=== PATIENT | male | born 1950 | race Two or more races ===

== ENCOUNTER 2017-11-17 07:43 | Day surgery (SDC) | payer OTHER ==
[~2017-11-17 07:43] MED LIST: ASA81 MG PO
[2017-11-17] MEDS ORDERED: PERCOCET 5-3251 EACH PO (14:21)
== END 2017-11-17 17:32 | disposition home or self-care (01) ==
LOC: CIR.AMB 07:43
DX: C73 Malignant neoplasm of thyroid gland (principal)

== ENCOUNTER 2018-03-16 12:00 | Day surgery (SDC) | payer OTHER ==
[~2018-03-16] VITALS: Ht 172.7 cm; Wt 78.9 kg
[~2018-03-16 12:00] MED LIST changes: +PERCOCET 5-3251 EACH PO; +SYNTHROID50 MCG PO
[2018-03-16] MEDS ORDERED: PERCOCET 5-3251 EACH PO (12:55)
== END 2018-03-16 16:10 | disposition home or self-care (01) ==
LOC: CIR.AMB 12:00 → SURG 12:00 → CIR.AMB 16:10
DX: D34 Benign neoplasm of thyroid gland (principal)

== ENCOUNTER 2024-07-31 13:16 | Inpatient (IN) | payer OTHER ==
[~2024-07-31] VITALS: Ht 172.7 cm; Wt 169.6 kg
[2024-07-31] MEDS ORDERED: ROSUVASTATIN CA10 MG (13:21)
[2024-07-31] MEDS ORDERED: METOPROLOL SUCC25 MG (13:21)
[2024-07-31] MEDS ORDERED: COZAAR50 MG (13:22)
[2024-07-31] MEDS ORDERED: CEFTRIAXONE SODIUM 2,000 MG VIAL IV ONE (15:30)
[2024-07-31] MEDS ORDERED: 0.9 % SODIUM CHLORIDE 500 ML IV ONE (15:30)
[2024-07-31] MEDS ORDERED: TRAMADOL HCL 50 MG TABLET PO STA (15:39)
[2024-07-31] MEDS ORDERED: TAMSULOSIN HCL 0.4 MG CAP PO ONE (15:45)
[2024-07-31 16:19] LABS: PH,URINE 6.5 (5.0-8.0); URINE APPEARANCE Cloudy; URINE BILIRRUBIN Negative (NEGATIVE); URINE BLOOD Small; URINE COLOR Yellow; URINE GLUCOSE Negative (NEGATIVE); URINE KETONE Trace (NEGATIVE); URINE LEUKOCYTE Large; URINE NITRATE Negative; URINE PROTEIN 30 (NEGATIVE)
[2024-07-31 16:23] LABS: URINE RBC 87.7 uL (0.0-20.8); URINE WBC 3095.3 uL (0.0-23.2)
[2024-07-31 16:29] LABS: URINE EPITHELIAL CELLS 0.9 uL (0.0-38.8)
[2024-07-31 16:30] LABS: URINE BACTERIA > 9821.5 uL (0.0-1933)
[2024-07-31 16:58] LABS: HEMATOCRIT 36.8 % (39.0-48.0); HEMOGLOBIN 12.5 g/dL (13-16.00); MEAN CORPUSCULAR HEMOGLOBIN 26.9 pg (27.00-32.0); PLATELET COUNT 288 K/uL (150-450); RED BLOOD COUNT 4.66 M/uL (4.00-6.00)
[2024-07-31 17:21] LABS: ALBUMIN 3.8 gm/dL (3.4-5.0); BILIRUBIN TOTAL 0.52 mg/dL (0.3-1.2); CALCIUM 10.4 mg/dL (8.5-10.1); CREATININE SERUM 0.98 mg/dL (0.70-1.30); GFR 75.18; GLOBULINA 5.1 G/DL (2.4-3.5); POTASSIUM 3.98 mEq/L (3.5-5.1); TOTAL PROTEIN 8.9 gm/dL (6.4-8.2)
[2024-07-31] MEDS ORDERED: MEROPENEM 500 MG/VIAL VIAL IV SCH (21:23)
[2024-07-31] MEDS ORDERED: KETOROLAC TROMETHAMINE 15 MG VIAL IU SCH (21:30)
[2024-07-31] MEDS ORDERED: 0.9 % SODIUM CHLORIDE 1,000 ML IV SCH (21:30)
[2024-07-31] MEDS ORDERED: ACETAMINOPHEN 500 MG GEL..CAP PO PRN (21:30)
[2024-07-31 21:45] VITALS: BP 119/70
[2024-07-31 22:17] LABS: INR 1.1; PARTIAL THROMBOPLASTIN TIME 29.3 SECONDS (22.0-34.0); PROTHROMBIN TIME 11.9 SECONDS (9.0-11.5)
[2024-07-31 23:24] VITALS: BP 116/61; O2SAT 95
[2024-08-01 00:54] VITALS: BP 136/79; O2SAT 95
[2024-08-01 08:05] VITALS: BP 113/61; O2SAT 97
[2024-08-01] MEDS ORDERED: ASPIRIN 81 MG TAB.CHEW PO SCH (09:00)
[2024-08-01] MEDS ORDERED: LACTOBACILLUS ACIDOPHILUS 1 CAP CAP PO SCH (09:00)
[2024-08-01] MEDS ORDERED: FAMOTIDINE/PF 20 MG in 0.9 % SODIUM CHLORIDE 8 ML IV PUSH SCH (09:00)
[2024-08-01] MEDS ORDERED: KETOROLAC TROMETHAMINE 30 MG VIAL IV SCH (13:00)
[2024-08-01 16:23] VITALS: BP 134/79
[2024-08-01] MEDS ORDERED: SIMVASTATIN 20 MG TABLET PO SCH (17:00)
[2024-08-02 01:06] VITALS: BP 136/74; O2SAT 96
[2024-08-02] MEDS ORDERED: LEVOTHYROXINE SODIUM 100 MCG TABLET PO SCH (06:00)
[2024-08-02 08:01] LABS: PH,URINE 7.5 (5.0-8.0); URINE APPEARANCE Clear; URINE BILIRRUBIN Negative (NEGATIVE); URINE BLOOD Negative; URINE COLOR Yellow; URINE GLUCOSE Negative (NEGATIVE); URINE KETONE Negative (NEGATIVE); URINE LEUKOCYTE Small; URINE NITRATE Negative; URINE PROTEIN Negative (NEGATIVE)
[2024-08-02 08:05] LABS: URINE BACTERIA 13.8 uL (0.0-1933); URINE EPITHELIAL CELLS 2.3 uL (0.0-38.8); URINE RBC 15.5 uL (0.0-20.8); URINE WBC 267.4 uL (0.0-23.2)
[2024-08-02 08:11] LABS: HEMATOCRIT 36.6 % (39.0-48.0); HEMOGLOBIN 12.7 g/dL (13-16.00); MEAN CELL VOLUME 77.7 fL (80.0-100.00); MEAN CORPUSCULAR HGB CONC 34.7 g/dl (32.0-36.0); PLATELET COUNT 287 K/uL (150-450); RED BLOOD COUNT 4.71 M/uL (4.00-6.00); RED CELL DISTRIBUTION WIDTH 15.1 % (11.5-14.5)
[2024-08-02 08:53] VITALS: BP 123/76; O2SAT 99
[2024-08-02 09:02] LABS: ALBUMIN 3.5 gm/dL (3.4-5.0); BILIRUBIN TOTAL 0.54 mg/dL (0.3-1.2); CALCIUM 10.2 mg/dL (8.5-10.1); CREATININE SERUM 0.89 mg/dL (0.70-1.30); GFR 84.02; GLOBULINA 4.2 G/DL (2.4-3.5); MAGNESIUM 2.5 mg/dL (1.8-2.4); POTASSIUM 4.38 mEq/L (3.5-5.1); TOTAL PROTEIN 7.7 gm/dL (6.4-8.2)
[2024-08-02 09:05] LABS: C-REACTIVE PROTEIN 7.14 MG/DL (0.00-0.29)
[2024-08-02] MEDS ORDERED: CEFTRIAXONE SODIUM 2,000 MG VIAL IV SCH (17:00)
[2024-08-02 17:47] VITALS: BP 123/61
[2024-08-03 02:41] VITALS: BP 120/73; O2SAT 95
[2024-08-03] MEDS ORDERED: KETOROLAC TROMETHAMINE 30 MG VIAL IV PRN (05:45)
[2024-08-03 08:26] VITALS: BP 135/80
[2024-08-03] MEDS ORDERED: TAMSULOSIN HCL 0.4 MG CAP PO SCH (17:00)
[2024-08-03] MEDS ORDERED: FINASTERIDE 5 MG TABLET PO SCH (17:00)
[2024-08-03] MEDS ORDERED: NAPROXEN 500 MG TABLET PO SCH (21:00)
[2024-08-04 01:28] VITALS: BP 96/57; O2SAT 95
[2024-08-04 08:29] VITALS: BP 113/61
[2024-08-04] MEDS ORDERED: LOSARTAN POTASSIUM 50 MG TABLET PO SCH (09:00)
[2024-08-04] MEDS ORDERED: METOPROLOL SUCCINATE 25 MG TAB.SR.24H PO SCH (09:00)
[2024-08-04 16:07] VITALS: BP 131/74
[2024-08-05 01:28] VITALS: BP 100/60; O2SAT 97
[2024-08-05 08:49] VITALS: BP 116/68; O2SAT 99
== END 2024-08-05 11:04 | disposition home or self-care (01) | DRG 690 ==
LOC: ER 13:17 → MEDJ 22:14 → SEC-K 22:14 → MEDJ 23:22
PROVIDERS: General Practice; Internal Medicine Infectious Disease; Nurse Practitioner Family; ADMIT Internal Medicine; ATTEND Internal Medicine
PROC: BW21ZZZ Computerized Tomography (CT Scan) of Abdomen and Pelvis (ICD-10-PCS; principal; 2024-07-31)
PROC: BV44ZZZ Ultrasonography of Scrotum (ICD-10-PCS; 2024-07-31)
DX: N39.0 Urinary tract infection, site not specified (principal); N45.2 Orchitis; N43.3 Hydrocele, unspecified; N44.8 Other noninflammatory disorders of the testis; B96.20 Unspecified Escherichia coli [E. coli] as the cause of diseases classified elsewhere; I10 Essential (primary) hypertension; E03.9 Hypothyroidism, unspecified; E78.5 Hyperlipidemia, unspecified; N40.0 Benign prostatic hyperplasia without lower urinary tract symptoms; Z88.0 Allergy status to penicillin